=== PATIENT | male | born 1990 | race Caucasian/White ===

== ENCOUNTER 2024-02-12 | Day surgery (SDC) | payer MEDICARE, BC, SELFPAY ==
--- NOTE | 2024-02-11 | ECG_ITS ---
APPROVED REPORT Exam: Resting ECG HR:74 bpm ECG Measurements Heart Rate 74 AXES IA 160 P 26 QRSd 94 QRS -7 QT 369 T 12 QTc 397 Conclusion SINUS RHYTHM MINIMAL VOLTAGE CRITERIA FOR LVH, CONSIDER NORMAL VARIANT [MEETS CRITERIA IN ONE OF: R(aVL), S(V1), R(V5), R(V5/V6)+S(V1)] BORDERLINE ECG Electronically signed by : NAVIN OG, 02/12/2024 04:59:08
[2024-02-12] VITALS (11 sets, daily range): BP systolic 131–153; BP diastolic 71–104; PULSE 64–82; RESP 16–18; TEMP 36.3–36.9; O2SAT 94–97; BMI 29.6
--- NOTE | 2024-02-12 00:32 | HMH.EDGENADL ---
Discharge Plan Disposition Patient Disposition: Admitted Clinical Impressions Clinical Impression: Acute esophageal obstruction Discharge ED Provider: Yang Rich General Adult HPI General Chief complaint: PAIN Stated complaint: food lodged in throat Time Seen by Provider: 02/12/24 00:24 History of Present Illness HPI narrative: Thank you patient is a 33-year-old male with past medical history of narrow esophagus who presents emergency department for evaluation of food bolus. Patient ate a piece of beef roast approximately 5 hours prior to arrival, has been unable to swallow since and feels that it is stuck in his mid throat. He is not able to swallow spit or tolerate oral fluids. No other acute complaints at this time. Patient has an unknown penicillin allergy, no chest or abdominal surgeries. Related Data Allergies Allergy/AdvReac Type Severity Reaction Status Date / Time PCN (PENICILLIN) Allergy Intermediate NA-NAUSEA/V Uncoded 09/06/17 15:29 OMITING PFSH PFSH Disclaimer: The information contained in this section may have been updated after the patient was seen, as this information can be updated by other users. Social History (Updated 02/12/24 @ 01:38 by Tana Theodore CRNA) Smoking Status: Never smoker alcohol intake: former substance use type: denies use current occupational status: other Travel in the last 8 weeks: Inside the [place] ROS Obtained: Yes Systems reviewed as appropriate & no additional complaints except as documented Physical Exam General General appearance: alert and in no apparent distress Head Head exam: atraumatic and normocephalic Eye Eye exam: Present PERRL ENT ENT exam: Present mucous membranes moist Neck Neck exam: Present normal inspection Chest Chest inspection: Present normal inspection and symmetric chest wall rise Respiratory Respiratory exam: Present normal lung sounds bilaterally; Absent respiratory distress Cardiovascular Cardiovascular exam: Present regular rate and normal rhythm Abdominal Exam Abdominal exam: Present soft; Absent tenderness Extremities Exam Extremities exam: Present normal inspection Neurological Exam Neurological exam: Present alert Psychiatric Psychiatric exam: Present normal affect Skin Skin exam: Present warm and dry Medical Decision Making Jayjay Inquiry Pt receiving controlled substance: No Vital Signs: 02/12/24 00:37 02/12/24 01:15 Temperature 98.4 F 98.1 F Temperature Source Oral Oral Pulse Rate 64 Pulse Rate [Left] 64 Respiratory Rate 16 16 Blood Pressure 140/85 Blood Pressure [Right Radial Artery] 140/85 Blood Pressure Mean [Right Radial Artery] 103 Blood Pressure Source [Right Radial Artery] Automatic Cuff Blood Pressure Position [Right Radial Artery] Sitting 02 Sat by Pulse Oximetry 95 Oxygen Delivery Method Room Air Room Air Lab Data Lab Results 02/12/24 00:55: WBC 6.9, RBC 5.48, Hgb 16.9, Hct 51.0, MCV 93.0, MCH 30.8, MCHC 33.1, RDW 13.4, Plt Count 208, MPV 7.4, Neut % (Auto) 40.5, Lymph % (Auto) 48.0, [place] % (Auto) 6.3, Eos % (Auto) 4.0, Baso % (Auto) 1.2, Neut # (Auto) 2.8, Lymph # (Auto) 3.3, [place] # (Auto) 0.4, Eos # (Auto) 0.3, Baso # (Auto) 0.1, Sodium 141, Potassium 4.2, Chloride 106, Carbon Dioxide 29, Anion Gap 10.2, BUN 19, Creatinine 1.10, Estimated Creat Clear 150, Estimated GFR 76, Est GFR ( Amer) 92, Glucose 100, Calcium 10.0, Total Bilirubin 0.9, AST 51, ALT 56, Alkaline Phosphatase 90, Total Protein 8.2, Albumin 4.8, Globulin 3.4 H, Albumin/Globulin Ratio 1.4 02/12/24 00:55 02/12/24 00:55 Orders (Tests/Meds): ED MEDICATIONS Discontinued Medications Generic Name Dose Route Start Last Admin Trade Name Freq PRN Reason Stop Dose Admin Ondansetron HCl 4 mg 02/12/24 02:19 Ondansetron 4mg/2ml Vial IV 02/12/24 04:20 Q6HP PRN Nausea ORDERS Category Date Time Status CBC w/Auto Diff [Complete Blood Count Auto Diff] Stat Lab 02/12/24 00:55 Completed CMP [Comprehensive Metabolic Panel] Stat Lab 02/12/24 00:55 Completed ECG Data Tracing #1: Independently interpreted by me, rate 74, rhythm is regular, axis is normal, no ST elevation in anatomical contiguous leads, QTc 397 Medical Decision Narrative: In summary patient is a 33-year-old male past medical history described above who presents emergency department for evaluation of food bolus. Patient is hemodynamically stable nontoxic-appearing upon arrival, afebrile. Clinically patient has an esophageal obstruction. He has no significant comorbidities. Given this workup will be conducted with hematologic labs and EKG. The case will be discussed with Dr. Marks as patient will require EGD and patient will proceed for endoscopic evaluation at this time. Critical Care Critical Care Time Critical Care Time: No
--- NOTE | 2024-02-12 00:35 | PC.NURSE ---
Paging Dr. Marks for ER attending
--- NOTE | 2024-02-12 00:38 | PC.NURSE ---
House notified for food bolus removal and to contact OR team
--- NOTE | 2024-02-12 00:40 | PC.NURSE ---
OR TEAM CALLED IN SPOKE WITH STAN ZAMAN AND MELONY.
[2024-02-12 01:02] LABS: Basophils # 0.1 K/mm3 (0-0.2); Basophils % 1.2 % (0.1-2.0); Eosinophils # 0.3 K/mm3 (0.0-0.4); Hemoglobin 16.9 g/dL (14.1-18.0); Lymphocytes # 3.3 K/mm3 (0.7-4.5); Mean Corpuscular HGB Conc 33.1 g/dL (31.8-35.4); Mean Corpuscular Hemoglobin 30.8 pg (27.0-31.2); Mean Platelet Volume 7.4 fl (7.4-10.4); Monocytes # 0.4 K/mm3 (0.1-1.0); Monocytes % 6.3 % (1.7-9.3); Neutrophils # 2.8 K/mm3 (1.8-7.8); Neutrophils % 40.5 % (37.0-80.0); Platelet Count 208 K/mm3 (142-424); Red Blood Count 5.48 M/mm3 (4.60-6.20); Red Cell Distribution Width 13.4 % (11.5-17.5); White Blood Count 6.9 K/mm3 (4.8-10.8)
[2024-02-12 01:06] LABS: Chloride 106 mmol/L (98-107); Potassium 4.2 mmoL/L (3.5-5.1); Sodium 141 mmol/L (136-145)
[2024-02-12 01:08] LABS: Blood Urea Nitrogen 19 mg/dl (9-20); Creatinine Clearance Estimated 150 mL/min (50-200); Estimated Glomerular Filt Rate 76 ml/min (>60); GFR (African American) 92 ML/MIN (>60)
[2024-02-12 01:09] LABS: Alanine Aminotransferase 56 U/L (12-78); Albumin Level 4.8 g/dl (3.5-5.0); Albumin/Globulin Ratio 1.4 (1.1-1.8); Alkaline Phosphatase 90 U/L (38-126); Anion Gap 10.2 mEq/L (5-15); Aspartate Amino Transferase 51 U/L (17-59); Bilirubin,Total 0.9 mg/dl (0.2-1.3); Carbon Dioxide 29 mmol/L (22.0-30.0); Globulin 3.4 g/dL (1.3-3.2); Glucose 100 mg/dl (74-100); Total Protein,Serum 8.2 g/dl (6.3-8.2)
--- NOTE | 2024-02-12 01:19 | EXP.GEN.HP ---
HPI HPI HPI: Patient is a 33-year-old male who has prior history of dysphagia type symptoms and diagnosed with narrow esophagus . Never required upper endoscopy although he had been evaluated at another facility and had spontaneous resolution of symptoms. He had been eating beef approximately 7:30 PM on 02/11/2024. He had been unable to swallow ever since. Cannot tolerate oral secretions. Presented to the emergency department several hours later. Surgery was contacted for consultation. [facility] Disclaimer: The information contained in this section may have been updated after the patient was seen, as this information can be updated by other users. Social History (Updated 02/12/24 @ 01:24 by Colby Marks MD) Smoking Status: Never smoker alcohol intake: former current occupational status: other Travel in the last 8 weeks: Inside the [place] [employer] Home Medications and Allergies New Prescriptions to Start Prescriptions: Allergies Allergy/AdvReac Type Severity Reaction Status Date / Time PCN (PENICILLIN) Allergy Intermediate NA-NAUSEA/V Uncoded 09/06/17 15:29 OMITING Exam Data for Last 24 hours Vital signs and Labs for Last 24 Hours: Temp Pulse Resp BP Pulse Ox O2 Del Method 98.1 F 64 16 140/85 95 Room Air 02/12/24 01:15 02/12/24 01:15 02/12/24 01:15 02/12/24 01:15 02/12/24 00:37 02/12/24 01:15 Laboratory Results - last 24 hr 02/12/24 00:55: WBC 6.9, RBC 5.48, Hgb 16.9, Hct 51.0, MCV 93.0, MCH 30.8, MCHC 33.1, RDW 13.4, Plt Count 208, MPV 7.4, Neut % (Auto) 40.5, Lymph % (Auto) 48.0, [place] % (Auto) 6.3, Eos % (Auto) 4.0, Baso % (Auto) 1.2, Neut # (Auto) 2.8, Lymph # (Auto) 3.3, [place] # (Auto) 0.4, Eos # (Auto) 0.3, Baso # (Auto) 0.1 I & O for Last 24 hours: Intake & Output 02/09/24 02/10/24 02/11/24 02/12/24 11:59 11:59 11:59 11:59 Weight 250 lb Constitutional Constitutional: no acute distress Comments: Patient sitting on the stretcher looking at his phone in no acute distress *Routine HEENT Exam Head: Present normocephalic Eye: Present EOMI ENT: Present mucous membranes moist *Routine Respiratory Exam Respiratory: Absent respiratory distress *Routine Cardiovascular Exam Cardiovascular: Present RRR *Routine Abdominal Exam Abdominal: Present soft *Routine Rectal Exam Rectal:: deferred *Routine Genitalia Exam Genitalia:: deferred Results Results Lab Results Last 24 Hours:: Laboratory Results - last 24 hr 02/12/24 00:55: WBC 6.9, RBC 5.48, Hgb 16.9, Hct 51.0, MCV 93.0, MCH 30.8, MCHC 33.1, RDW 13.4, Plt Count 208, MPV 7.4, Neut % (Auto) 40.5, Lymph % (Auto) 48.0, [place] % (Auto) 6.3, Eos % (Auto) 4.0, Baso % (Auto) 1.2, Neut # (Auto) 2.8, Lymph # (Auto) 3.3, [place] # (Auto) 0.4, Eos # (Auto) 0.3, Baso # (Auto) 0.1 Assessment and Plan *Assessment and plan (1) Acute esophageal obstruction: Status: Acute Category: Medical Code(s): K22.2 - Esophageal obstruction Plan Plan for emergent upper endoscopy for esophageal obstruction. Risks of the procedure include, but not limited to, bleeding, anesthetic risk, respiratory complications, perforation. Arrangements will be made.
--- NOTE | 2024-02-12 01:36 | EXP.ANES.CKL ---
[facility] Disclaimer: The information contained in this section may have been updated after the patient was seen, as this information can be updated by other users. Social History (Updated 02/12/24 @ 01:24 by Colby Marks MD) Smoking Status: Never smoker alcohol intake: former substance use type: denies use current occupational status: other Travel in the last 8 weeks: Inside the [place] [facility] Anesthesia Checklist Patient Identification Patient Identification: Arm Band and Verbal (Name & ) Structural Data Admitted From: Emergency Dept Planned Operative Procedure/s: EGD w/Food Bolus Removal Consent for Planned Operative Procedure(s) Verified: Yes Verified Documents: Surgical Consent and History and Physical NPO Status Verified Time NPO: 20:00 Chart Verification Results Verified: CBC and BMP Additional verifications Patient : No Anesthesia Reactions: No Cardiovascular Assessment Heart Sounds: S1 & S2 Pulse Rhythm: Irregular Peripheral Edema: No Airway Assessment Mallampati Score:: Class III C-Spine Mobility Assessed: Yes (FROM) TMJ Mobility Assessed: Yes Dentition: Poor Dentition (Nothing loose per pt.) Neurological Assessment Level of Consciousness: Awake, Alert, Appropriate and Follows Commands Hx Seizures: No Numbness or tingling in extremities: No Anesthesia Plan Anesthesia Risk discussed: Yes Anesthesia Plan: Verified ASA Class: II (E) Anesthesia Type: General
--- NOTE | 2024-02-12 02:04 | P.PCN_ITS ---
Procedure: Date: 02/12/24 Patient Date of :: 1990 Procedure Performed:: Esophagogastroduodenoscopy with retrieval of foreign body/food impaction for relief of esophageal obstruction Indications:: Patient is a 33-year-old male with history of GERD and dysphagia. He has had a couple of episodes of transient esophageal obstruction from food impaction and had actually been seen at an outside facility at some point but never required upper endoscopy. He is on omeprazole. At approximately 7:30 PM on 02/11/2024 he was eating beef and had symptoms of esophageal obstruction. This persisted and he ultimately presented to the emergency department at [facility] or when he was evaluated and had symptoms consistent with esophageal obstruction. Surgical consultation was obtained. Patient was seen and examined in the emergency department and arrangements were made for emergent upper endoscopy. . Performing Provider:: Colby Marks MD Referring Provider:: . Sedation:: MAC sedation Procedure:: Patient history was obtained and appropriate physical examination was performed. Patient's medications and allergies were reviewed. Informed consent was obtained after explaining the benefits, alternatives, and risks of the procedure including, but not limited to, bleeding, perforation, missed lesions, and adverse reaction to anesthesia medications. Patient was transported to the operating room. Patient was connected to monitoring devices. Throughout the procedure the patient's blood pressure, pulse, and oxygen saturations were monitored continuously. Patient identification and planned procedure were verified by the staff. He underwent induction of general anesthesia via endotracheal tube. Patient was positioned in lateral decubitus position. Olympus endoscope was inserted via the oropharynx. Esophagus was cannulated. There were some secretions present which were suctioned free. Food bolus consistent with meat was encountered and impacted at approximately 35 cm from the incisors. The Rogers retrieval net was inserted and the food bolus was grasped. This was withdrawn in its entirety. There was a large food bolus present. Endoscope was reinserted. There was no evidence of any residual obstruction. There was some inflammation at the gastroesophageal junction. Stomach was cannulated. Limited remainder esophagogastroduodenoscopy was performed. There was some appreciable but nonerosive duodenitis. Pylorus was traversed. There were several shallow ulcerations/erosions consistent with significant duodenitis. Stomach was desufflated and the scope was withdrawn. Findings:: Esophageal food impaction/obstruction at 35 cm Recommendations:: Remain on clear liquid diet for 24 hours then soft with avoidance of bread and meat. Recommend elective endoscopy in several weeks for biopsies, assessment, possible dilatation. Complications:: None immediately apparent Estimated blood obtained (mL): 1 Colonoscopy Component Colonoscopy Component Was a colonoscopy performed during today's procedure?: No
--- NOTE | 2024-02-12 02:17 | EXP.ANES.I ---
[facility] Anesthesia Record Part I Anesthesia Record I Intake, IV Amount: 200 Hydration: Adequate Estimated blood loss (mL): 0 Urine output (mL): 0 Blood Products used (#): none Blood Pressure: 147/104 SaO2: 94 Pulse Rate: 81 Airway Patency: Patent Respiratory Rate: 16 Temperature: 97.3 F Patient is:: Awake (Talking) and Stable Stable to PACU at:: 02:13
== END 2024-02-12 03:12 | disposition home or self-care (01) ==
LOC: ER 01:03 → SDC 01:09
PROVIDERS: Emergency Provider Emergency Medicine; Visit Provider Surgery
PROC: 0DJ08ZZ Inspection of Upper Intestinal Tract, Via Natural or Artificial Opening Endoscopic (ICD-10-PCS; CPT 43235; principal; 2024-02-12 01:30)
DX: K22.2 Esophageal obstruction (principal); T18.128A Food in esophagus causing other injury, initial encounter
CPT/HCPCS: 43247; 80053; 85025; 93005; J0330

== ENCOUNTER 2024-04-06 12:04 | Day surgery (SDC) | payer BC, SELFPAY ==
[2024-04-04 14:57] VITALS: BMI 31.4
[2024-04-06 12:18] VITALS: BP 129/76; PULSE 53; RESP 18; TEMP 36.1; O2SAT 96; BMI 31.4
[2024-04-06] MEDS: LACTATED RINGERS 1000ML 1,000 ML 25 ML IV (12:23)
--- NOTE | 2024-04-06 12:31 | EXP.GEN.HP ---
HPI HPI HPI: Patient presents for EGD. He had presented with esophageal food impaction with beef requiring emergent endoscopy for retrieval on 02/12/2024. Retrieval was performed with Rogers net. He was noted to have possible erosive duodenitis. Prior to that he had some episodes of transient dysphagia requiring evaluation at outside facilities but never endoscopy. He has been on omeprazaole. He still has some self-limited transient dysphagia type symptoms such as when eating sandwich. Plan was for elective endoscopy for assessment, biopsies, possible dilatation. . [facility] Disclaimer: The information contained in this section may have been updated after the patient was seen, as this information can be updated by other users. Medical History (Updated 04/06/24 @ 12:38 by Colby Marks MD) GERD (gastroesophageal reflux disease) Surgical History History of esophagogastroduodenoscopy (EGD) Hx of oral surgery Family History No significant family history Social History Smoking Status: Former smoker alcohol intake: former substance use type: denies use current occupational status: other Travel in the last 8 weeks: None Meds Home Medications and Allergies Home Medications Medication Instructions Recorded Confirmed Type omeprazole 40 mg capsule,delayed 40 mg PO DAILY #30 caps 02/16/24 04/04/24 Rx release New Prescriptions to Start Prescriptions: Allergies Allergy/AdvReac Type Severity Reaction Status Date / Time Penicillins AdvReac Intermediate Verified 04/06/24 12:16 Exam Data for Last 24 hours Vital signs and Labs for Last 24 Hours: Temp Pulse Resp BP Pulse Ox O2 Del Method 97 F L 53 L 18 129/76 96 Room Air 04/06/24 12:18 04/06/24 12:18 04/06/24 12:18 04/06/24 12:18 04/06/24 12:18 04/06/24 12:18 I & O for Last 24 hours: Intake & Output 04/04/24 04/05/24 04/06/24 04/07/24 11:59 11:59 11:59 11:59 Weight 265 lb 265 lb Constitutional Constitutional: no acute distress *Routine HEENT Exam Head: Present normocephalic Eye: Present EOMI and PERRL ENT: Present mucous membranes moist *Routine Neck Exam Neck: Present supple; Absent lymphadenopathy *Routine Respiratory Exam Respiratory: Present CTA bilaterally *Routine Cardiovascular Exam Cardiovascular: Present RRR *Routine Abdominal Exam Abdominal: Present soft and normoactive bowel sounds; Absent tenderness *Routine Rectal Exam Rectal:: deferred *Routine Genitalia Exam Genitalia:: deferred *Routine Extremities Exam Extremities: Absent cyanosis, clubbing or edema *Routine Skin Exam Skin: Present warm; Absent rash *Routine Neurological Exam Neurological: Present alert and oriented X3 Assessment and Plan *Assessment and plan (1) Dysphagia: Status: Acute Category: Medical Code(s): R13.10 - Dysphagia, unspecified Plan EGD
--- NOTE | 2024-04-06 12:38 | P.PNANES_ITS ---
[facility] Disclaimer: The information contained in this section may have been updated after the patient was seen, as this information can be updated by other users. Medical History (Updated 04/06/24 @ 12:38 by Colby Marks MD) GERD (gastroesophageal reflux disease) Surgical History History of esophagogastroduodenoscopy (EGD) Hx of oral surgery Family History Other No significant family history Social History Smoking Status: Former smoker alcohol intake: former substance use type: denies use current occupational status: other Travel in the last 8 weeks: None [facility] Anesthesia Checklist Patient Identification Patient Identification: Arm Band, Family and Verbal (Name & ) Structural Data Admitted From: Home Planned Operative Procedure/s: EGD Consent for Planned Operative Procedure(s) Verified: Yes Verified Documents: Surgical Consent and History and Physical NPO Status Verified Time NPO: 23:00 Chart Verification Results Verified: CBC, BMP and ECG Additional verifications Patient : No Anesthesia Reactions: No Cardiovascular Assessment Heart Sounds: S1 & S2 Pulse Rhythm: Irregular Peripheral Edema: No Airway Assessment Mallampati Score:: Class II C-Spine Mobility Assessed: Yes (FROM) TMJ Mobility Assessed: Yes Dentition: Good Dentition (Nothing loose per pt.) Neurological Assessment Level of Consciousness: Awake, Alert, Appropriate and Follows Commands Hx Seizures: No Numbness or tingling in extremities: No Anesthesia Plan Anesthesia Risk discussed: Yes Anesthesia Plan: Verified ASA Class: II Anesthesia Type: MAC
--- NOTE | 2024-04-06 12:39 | HMH.SCOPE ---
Procedure: Date: 04/06/24 Patient Date of :: 1990 Procedure Performed:: Esophagogastroduodenoscopy with biopsies Indications:: Patient presents for EGD. He is a 34 year old from [place], [place]. He had presented with esophageal food impaction with beef requiring emergent endoscopy for retrieval on 02/12/2024. Retrieval was performed with Rogers net. He was noted to have possible erosive duodenitis. Prior to that he had some episodes of transient dysphagia requiring evaluation at outside facilities but never endoscopy. He has been on omeprazaole. He states he has still had problems with transient dysphagia such as when eating lunch meat sandwiches. Plan was for elective endoscopy for assessment/evaluation, biopsies, possible dilatation. . Performing Provider:: Colby Marks MD Referring Provider:: Thomas Pelaez MD . Sedation:: MAC sedation Procedure:: Patient history was obtained and appropriate physical examination was performed. Patient's medications and allergies were reviewed. Informed consent was obtained after explaining the benefits, alternatives, and risks of the procedure including, but not limited to, bleeding, perforation, missed lesions, and adverse reaction to anesthesia medications. Patient was transported to endoscopy procedure room. Patient was connected to monitoring devices. Throughout the procedure the patient's blood pressure, pulse, and oxygen saturations were monitored continuously. Patient identification and planned procedure were verified by the staff. Patient was positioned in lateral decubitus position. Olympus endoscope was inserted via the oropharynx. There was some cricopharyngeal spasm. There were findings of mild chronic esophagitis. GE junction was at 40cm. There was some chronic circumferential inflammation in the distal esophagus proximal to the GE junction but no luminal compromising Schatski's ring. Stomach was cannulated and insuflated. Retroflexion revealed no evidence of any significant hiatal hernia. There was diffuse gastropathy. There was some focal erosive gastritis in the prepyloric location. Biopsies were obtained. Pyrlorus was traversed. There was nonerosive duodenotis in the duodenal bulb. Biopsies were obtained. Endoscope was withdrawn into distal esophagus and a couple of biopsies were obtained at GE junction. Several biopsies were obtained in distal esophagus at the site of inflammation. . Findings:: Mild chronic esophagitis More significant focal circumferential esophagitis proximal to GE junction GE junction at 40cm Diffuse non-erosive gastrophathy Focal prepyloric erosive gastritis Nonerosive duodenitis in duodenal bulb . Recommendations:: Followup on biopsies. May need alternate therapy such as Nexium. Treat H. Pylori if indicated. . Complications:: None immediately apparent. Estimated blood obtained (mL): 2 Colonoscopy Component Colonoscopy Component Was a colonoscopy performed during today's procedure?: No
[2024-04-06 12:46] VITALS: O2SAT 96
--- NOTE | 2024-04-06 13:05 | EXP.ANES.I ---
[facility] Anesthesia Record Part I Anesthesia Record I Intake, IV Amount: 400 Hydration: Adequate Estimated blood loss (mL): 1 Urine output (mL): 0 Blood Products used (#): none Blood Pressure: 138/85 SaO2: 93 Pulse Rate: 75 Airway Patency: Patent Respiratory Rate: 16 Temperature: 97.4 F Patient is:: Drowsy and Stable Stable to PACU at:: 13:11
[2024-04-06 13:06] VITALS: BP 138/85; PULSE 75; PULSE 76; RESP 14; RESP 16; TEMP 36.3; O2SAT 93; O2SAT 96
[2024-04-06 13:16] VITALS: BP 123/71; PULSE 72; RESP 14; O2SAT 94
[2024-04-06 13:26] VITALS: BP 124/73; PULSE 74; RESP 16; O2SAT 94
[2024-04-06 13:36] VITALS: BP 122/78; PULSE 74; RESP 16; O2SAT 96
== END 2024-04-06 13:40 | disposition home or self-care (01) ==
PROVIDERS: PCP Internal Medicine Cardiovascular Disease; Visit Provider Surgery
PROC: 0DJ08ZZ Inspection of Upper Intestinal Tract, Via Natural or Artificial Opening Endoscopic (ICD-10-PCS; CPT 43235; principal; 2024-04-06 13:00)
DX: K20.90 Esophagitis, unspecified without bleeding (principal); K31.89 Other diseases of stomach and duodenum; K29.60 Other gastritis without bleeding; K29.80 Duodenitis without bleeding; R13.10 Dysphagia, unspecified
CPT/HCPCS: 43239; J7120